=== PATIENT | female | born 1960 | race African-American/Black ===

== ENCOUNTER 2017-11-11 11:41 | Inpatient (IN) | payer OTHER ==
[2017-10-24 09:30] LABS: ABSOLUTE BASOPHILS 0.1 thou/uL (0.0-0.2); ABSOLUTE EOSINOPHILS 0.2 thou/uL (0.0-0.7); ABSOLUTE LYMPHOCYTES 2.1 thou/uL (0.8-5.3); ABSOLUTE MONOCYTES 0.3 thou/uL (0.0-1.2); ABSOLUTE NEUTROPHILS 1.8 thou/uL (1.6-8.1); BASOPHILS 1.2 %; HEMOGLOBIN 13.3 gm/dL (12.0-15.0); LYMPHOCYTES 47.4 %; MCH 29.6 pg (26.0-34.0); MCHC 33.2 g/dL (28.0-37.0); MONOCYTES 6.2 %; MPV 9.1 fl. (7.2-11.1); NUCLEATED RBCS 0 /100WBC; PLATELET COUNT* 247 thou/uL (150-400); POLYS 41.2 %; RBC 4.49 mil/uL (4.20-5.00); RDW-CV 13.1 % (10.5-14.5); WBC 4.5 thou/uL (4.0-11.0)
[2017-10-24 09:40] LABS: APTT 27.1 Seconds (25.0-31.3)
[2017-10-24 09:51] LABS: ALBUMIN 3.5 g/dL (3.4-5.0); CALCIUM 8.6 mg/dL (8.5-10.1); CREATININE 0.9 mg/dL (0.6-1.3); POTASSIUM 3.2 mmol/L (3.5-5.1); TOTAL BILIRUBIN 0.9 mg/dL (<0.1-1.0); TOTAL PROTEIN 6.8 g/dL (6.4-8.2)
[2017-10-24 10:25] LABS: ESR (SEDRATE) 5 mm/hr (0-30)
[2017-10-25 05:15] LABS: GLYCOHEMOGLOBIN (HGB A1C) 5.3 % (4.8-5.6)
[~2017-11-11] VITALS: Ht 160 cm; Wt 86.2 kg
[~2017-11-11 11:41] MED LIST: ETODOLAC 400 M400 M1 PO; KLOR-CON 1010 MEQ PO; LOPRESSOR25 PO; MAXZIDE-25 MG1 EACH PO; TRAMADOL 50 MG50 MG PO
[2017-11-11 12:36] VITALS: BP 173/76
[2017-11-11 16:27] VITALS: BP 132/86
[2017-11-11 20:00] VITALS: BP 118/72
[2017-11-11 23:55] VITALS: BP 111/65
[2017-11-12] VITALS (7 sets, daily range): BP systolic 119–144; BP diastolic 63–84
[2017-11-12 04:44] LABS: HEMATOCRIT 34.8 % (37.0-47.0); HEMOGLOBIN 11.6 gm/dL (12.0-15.0)
[2017-11-12 05:10] LABS: CALCIUM 8.6 mg/dL (8.5-10.1); CREATININE 1.1 mg/dL (0.6-1.3); POTASSIUM 3.9 mmol/L (3.5-5.1)
[2017-11-12 22:21] LABS: HEMATOCRIT 32.5 % (37.0-47.0); MCH 30.1 pg (26.0-34.0); MCHC 33.7 g/dL (28.0-37.0); MCV 89.4 fL (80.0-100.0); MPV 10.1 fl. (7.2-11.1); RBC 3.64 mil/uL (4.20-5.00); WBC 10.1 thou/uL (4.0-11.0)
[2017-11-12 22:29] LABS: APTT 27.2 Seconds (25.0-31.3); CALCIUM 8.1 mg/dL (8.5-10.1); CREATININE 1.1 mg/dL (0.6-1.3); INR 1.1; POTASSIUM 3.2 mmol/L (3.5-5.1); PROTIME 10.8 Seconds (9.20-11.50)
[2017-11-12 22:34] LABS: ALBUMIN 2.9 g/dL (3.4-5.0); TOTAL BILIRUBIN 0.7 mg/dL (<0.1-1.0); TOTAL PROTEIN 6.4 g/dL (6.4-8.2)
[2017-11-13] VITALS (8 sets, daily range): BP systolic 117–143; BP diastolic 67–84
[2017-11-13 04:18] LABS: HEMATOCRIT 32.3 % (37.0-47.0); HEMOGLOBIN 10.9 gm/dL (12.0-15.0)
[2017-11-13 07:05] LABS: URINE BILIRUBIN NEGATIVE (Negative); URINE BLOOD 1+ (Negative); URINE CLARITY CLEAR; URINE COLOR YELLOW; URINE GLUCOSE-RANDOM NEGATIVE (Negative); URINE KETONES NEGATIVE (Negative); URINE LEUKOCYTES-REFLEX NEGATIVE (Negative); URINE NITRITE-REFLEX NEGATIVE (Negative); URINE PROTEIN NEGATIVE (Negative); URINE SPECIFIC GRAVITY 1.025 (1.005-1.030); URINE UROBILINOGEN 0.2 E.U./dl (0.2-1.0)
[2017-11-13 07:19] LABS: BACTERIA-REFLEX 1-9 Few /HPF (None Seen); CASTS None Seen /LPF (None Seen); CRYSTALS None Seen /LPF (None Seen); MUCUS None Seen strn/LPF (None Seen); SQUAMOUS >10 Many /LPF (0-3); URINE RBC 3-10 Few /HPF (0-2); URINE WBC-REFLEX 0-5 Rare /HPF (0-5)
--- NOTE | 2017-11-13 10:08 | EKG ---
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
[2017-11-13 10:13] LABS: ABSOLUTE LYMPHOCYTES 1.7 thou/uL (0.8-5.3); ABSOLUTE MONOCYTES 0.9 thou/uL (0.0-1.2); ABSOLUTE NEUTROPHILS 5.5 thou/uL (1.6-8.1); BASOPHILS 0.2 %; LYMPHOCYTES 21.3 %; MCH 30.3 pg (26.0-34.0); MCHC 33.3 g/dL (28.0-37.0); MCV 90.8 fL (80.0-100.0); MONOCYTES 10.9 %; MPV 10.5 fl. (7.2-11.1); NUCLEATED RBCS 0 /100WBC; PLATELET COUNT* 169 thou/uL (150-400); POLYS 67.6 %; RBC 3.58 mil/uL (4.20-5.00); RDW-CV 13.2 % (10.5-14.5); WBC 8.1 thou/uL (4.0-11.0)
[2017-11-13 21:07] LABS: TROPONIN-I LEVEL <0.06 ng/mL (<0.06)
[2017-11-14] VITALS: BP 121/63
[2017-11-14 04:11] VITALS: BP 121/73
[2017-11-14 07:50] VITALS: BP 121/75
[2017-11-14 11:15] VITALS: BP 117/71
[2017-11-14 11:52] VITALS: BP 112/56
--- NOTE | 2017-11-14 14:56 | EKG ---
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
--- NOTE | 2017-11-14 14:56 | EKG ---
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: [facility] : 1960 Requested By: Sushil Simpson Order Number: [id number] Saad MD: Shukri Lindsay Measurements Intervals [place] Rate: 128 P: 0 GA: QRS: 0 QRSD: 79 T: QT: 332 QTc: 485 Interpretive Statements sinus tachycardia No further analysis attempted - not enough leads could be measured Missing lead(s): I,III,aVR,aVL,aVF,V1,V2,V3,V4,V5,V6 Compared to ECG 11/12/2017 21:54:22 Sinus tachycardia still noted Electronically Signed On 11-14-2017 14:55:42 CDT by Shukri Lindsay [email or web address] <ELECTRONICALLY SIGNED> By: Shukri Lindsay MD, FACC 11/14/17 1455 45 45 Shukri Lindsay MD, FAC /EPI
[2017-11-14 16:00] VITALS: BP 113/72
[2017-11-15] VITALS: BP 132/75
[2017-11-15 04:00] VITALS: BP 118/66
[2017-11-15 07:50] VITALS: BP 129/65
--- NOTE | 2017-11-15 11:27 | 2DMMODE ---
[place] [address] 2 D/M-MODE ECHOCARDIOGRAM Name: JODIE WINSTON Room: [address] IN [facility]#: [id number] Admission: 11/11/17 Attend Phys: Jesús Trevizo Discharge: Date of : 60 Date of Service: 11/15/17 1126 Report #: [id number] THIS REPORT FOR: //name// APPROVED REPORT Study performed: 11/15/2017 10:14:27 EXAM: Comprehensive 2D, Doppler, and color-flow Echocardiogram Patient Location: In-Patient Room #: [facility] Status: routine BSA: 1.89 HR: 111 bpm BP: 129/65 mmHg Rhythm: NSR Other Information Study Quality: Excellent Indications Dyspnea Tachycardia 2D Dimensions IVSd: 9.89 (7-11mm) LVOT Diam: 21.10 (18-24mm) LVDd: 49.57 mm PWd: 9.41 (7-11mm) Ascending Ao: 30.60 (22-36mm) LVDs: 32.74 (25-40mm) Aortic Root: 30.89 mm Volumes Left Atrial Volume (Systole) LA ESV Index: 35.60 mL/m2 Aortic Valve AoV Peak Jose M.: 1.61 m/s AO Peak Gr.: 10.33 mmHg LVOT Max P.84 mmHg AO Mean Gr.: 5.52 mmHg LVOT Mean P.39 mmHg LVOT Max V: 1.31 m/s AO V2 VTI: 25.38 cm LVOT Mean V: 0.85 m/s ASH (VTI): 2.98 cm2 LVOT V1 VTI: 21.60 cm Mitral Valve E/A Ratio: 0.59 MV Decel. Time: 128.51 [place] [address] 2 D/M-MODE ECHOCARDIOGRAM Name: JODIE WINSTON Room: [address]#: [id number] Admission: 11/11/17 Attend Phys: Jesús Trevizo Discharge: Date of : 60 Date of Service: 11/15/17 1126 Report #: [id number] MV E Max Jose M.: 0.68 m/s MV PHT: 37.27 ms MVA (PHT): 5.90 cm2 TDI E/Lateral E': 6.18 E/Medial E': 5.23 Medial E' Jose M.: 0.13 m/s Lateral E' Jose M.: 0.11 m/s Pulmonary Valve PV Peak Jose M.: 1.19 m/s PV Peak Gr.: 5.65 mmHg Tricuspid Valve RAP Estimate: 5.00 mmHg TR Peak Gr.: 29.71 mmHg RVSP: 34.71 mmHg PA Pressure: 34.71 mmHg Left Ventricle The left ventricle is normal size. There is normal LV segmental wall motion. There is normal left ventricular wall thickness. Left ventricular systolic function is normal. The left ventricular ejection fraction is within the normal range. LVEF is 60-65%. Grade I - abnormal relaxation pattern. Right Ventricle The right ventricle is normal size. The right ventricular systolic function is normal. Atria Left atrium is mildly dilated. The right atrium size is normal. Aortic Valve The aortic valve is normal in structure. No aortic regurgitation is present. There is no aortic valvular stenosis. Mitral Valve The mitral valve is normal in structure. Trace mitral regurgitation. No evidence of mitral valve stenosis. Tricuspid Valve The tricuspid valve is normal in structure. Mild tricuspid regurgitation. estimated pa pressure 40 mm Hg Pulmonic Valve The pulmonary valve is normal in structure[place] [address] 2 D/M-MODE ECHOCARDIOGRAM Name: JODIE WINSTON Room: [address]#: [id number] Admission: 11/11/17 Attend Phys: Jesús Trevizo Discharge: Date of : 60 Date of Service: 11/15/17 1126 Report #: [id number] regurgitation. Great Vessels The aortic root is normal in size. IVC is normal in size and collapses with >50% inspiration Pericardium There is no pericardial effusion. <Conclusion> LVEF is 60-65%. Left atrium is mildly dilated. Mild tricuspid regurgitation. estimated pa pressure 40 mm Hg <ELECTRONICALLY SIGNED> By: Shukri Lindsay MD, FACC 11/15/17 1126 1126 1126 Shukri Lindsay MD, FACC /INF
[2017-11-15 12:10] VITALS: BP 129/73
[2017-11-15 16:00] VITALS: BP 123/73
[2017-11-15 20:20] VITALS: BP 121/70
[2017-11-16 01:32] VITALS: BP 99/66
[2017-11-16 02:41] VITALS: BP 116/72
[2017-11-16 08:00] VITALS: BP 127/65
[2017-11-16 10:55] VITALS: BP 127/65
[2017-11-16] MEDS ORDERED: ELIQUIS2.5 MG PO (12:50)
[2017-11-16] MEDS ORDERED: NEURONTIN 300300 M1 PO (12:54)
[2017-11-16] MEDS ORDERED: OXYCODONE HCL 55 MG PO (12:56)
--- NOTE | 2017-11-20 08:11 | OP ---
[address] [address] OPERATIVE REPORT Name: JODIE WINSTON Room: [address]#: [id number] Admission: 11/11/17 Attend Phys: Itzel Cedillo Discharge: 11/16/17 Date of : 60 Report #: [id number] THIS REPORT FOR: //name// CC: Rosette Trevizo DICTATED BY: Steve Alas DO DATE OF SERVICE: 11/11/2017 DIAGNOSIS: Left knee degenerative joint disease. SURGEON: Andres Last DO TIME STUDY STATISTICIAN: Steve Alas DO OPERATION PERFORMED: Left total knee arthroplasty. ANESTHESIA: General regional nerve block and local anesthetic. ESTIMATED BLOOD LOSS: 100 mL. SPECIMENS: None. COMPLICATIONS: None. DRAINS: None. ORTHOPEDIC IMPLANTS: 1. Biomet Vanguard CR femur, 62.5 mm. 2. Biomet Vanguard tibial baseplate, 67 mm. 3. Biomet Vanguard asymmetric poly patella, 31 mm. 4. Biomet Vanguard tibial bearing, 10 mm. INDICATIONS FOR PROCEDURE: The patient is a 57-year-old female who has had ongoing left knee pain, joint line tenderness medially, crepitance with range of motion. She has failed conservative measures in the form of activity modifications, attempted weight loss, home exercises, NSAIDs and steroid injections, has decreased quality of life and inability to carry out activities of daily living secondary to pain. It is recommend she would a candidate for left total knee arthroplasty given the advancing arthritis medial joint space, subchondral sclerosis and osteophyte formation present. All risks, benefits, complications, indications, alternatives were reviewed for this and she wished to proceed. [place] [id number] OPERATIVE REPORT Name: JODIE WINSTON Room: [address]#: [id number] Admission: 11/11/17 Attend Phys: Itzel Cedillo Discharge: 11/16/17 Date of : 60 Report #: [id number] DESCRIPTION OF PROCEDURE: The patient was brought to the operative suite and placed supine on a well-padded table, given the benefits of general anesthesia. At that time, the left lower extremity was sterilely prepped and draped in standard fashion. Timeout was taken to ensure correct patient, procedure, operative site and everybody in the room was in agreeance. At that time, a 10 blade scalpel was used to make a skin incision around the anterior aspect of the left knee. Dissection was carried down through skin and subcutaneous tissue. A second 10 blade was then used to perform a medial parapatellar arthrotomy. Subperiosteal tibial sleeve was developed. Excess Hoffa's fat pad and anterior horns of the medial and lateral menisci were excised as well as the ACL. We then used a drill. Patella was everted. The knee was brought into deep flexion. Drill was used to find intramedullary canal of the femur. Distal intramedullary femoral cutting guide was set to 11 mm resection and pinned into place with 5 degrees valgus, left. We made this resection. Following that, we used extramedullary tibial guide set in line with the medial third of the tibial tubercle, tibial crest and middle of the ankle. A stylus was used to make a 10 mm resection of the high lateral side. Once this resection was made with adequate spacing of the 10 block spacer, we then sized our femur to a 62.5. We made our anterior cuts followed by posterior cuts, anterior and posterior chamfer cuts. We removed excess osteophytes. Bovie electrocautery was used to remove the remnants of the meniscus as well as the rest of the PCL. We then sized our tibia to a size 67, pinned this into place with a drop melina in the appropriate position. A trial of 62.5 femur with a 10 mm poly had excellent stability through range of motion, full range of motion 0-135 degrees with excellent mid flexion stability. Final pedicles were drilled. The proximal tibia was prepared with the drill and punch. The patella was denervated with Bovie electrocautery and using a 46 mm Alexis reamer, was resurfaced to 14 mm of thickness. Three peg holes were drilled with a 31 asymmetric poly drill guide. We then trialed our trial patella, had excellent stability through range of motion without any lateral patellar tracking. All parts were removed. The ends of the bone were treated with pulsatile lavage. Cement was mixed at the back table. We then carried out cementing first with the tibia, followed by the femur and patella. Once cement was allowed to harden with a 10 mm spacer in, we then pulled our final 10 mm anterior stabilized insert. This was placed with a locking crossbar. Following that, the knee was thoroughly lavaged. A gram of vancomycin powder was allowed to sit in the knee. We then closed with #1 Vicryl, followed by running #1 Stratafix, irrigated once more, closed subcutaneous tissue with 2-0 Monocryl, followed by running 3-0 Stratafix. Dermabond glue with Mepilex dressing and JARVIS hose applied. The patient awoke from anesthesia, brought to PACU in stable condition. <ELECTRONICALLY SIGNED> By: Jad Qureshi DO 11/20/17 0811 1509 1657DO abhijeet Zamudio
--- NOTE | 2017-11-22 09:32 | CON ---
[address] [address] CONSULTATION Name: JODIE WINSTON Room: [address]#: [id number] Admission: 11/11/17 Attend Phys: Itzel Cedillo Discharge: 11/16/17 Date of : 60 Report #: [id number] THIS REPORT FOR: //name// CC: Andres Trevizo DATE OF SERVICE: 11/13/2017 HISTORY OF PRESENT ILLNESS: This is a 57-year-old female patient who had a left knee replacement on Saturday. She was doing well. She indicated she was on the first floor. She noticed that her hand became stiff. It is not clear what her blood pressure was, looks like the pulse was somewhat higher. She underwent a CT scan of the head, which was unremarkable. She is on pain medication. She never had this kind of spell before. REVIEW OF SYSTEMS: Indicate she had a knee replacement. She is on anticoagulation. Her CT scan is unremarkable. She is still complaining of lot of pain. She says that even if she touches her left knee, it hurts a lot. She did have some hypokalemia. REVIEW OF SYSTEMS: A 14-point review of systems was otherwise noncontributory. PAST MEDICAL HISTORY: Negative for similar kind of spell. FAMILY HISTORY: Negative for early age stroke. PHYSICAL EXAMINATION: Indicate she is alert, she is responsive, she is oriented. She can follow simple commands. Her speech, concentration, fund of knowledge and memory is unremarkable. Cranial nerve examination 2-12 looks unremarkable. Neuromuscular examination as far as it can be carried out looks mostly unremarkable. It is difficult to carry out with the knee surgery. There is no cerebellar sign. There is no carotid bruit. Cardiac examination is unremarkable. Respiratory examinations appear unremarkable. Blood pressure is 129/78, respirations 18, pulse is 111, temperature is 100.3. She did have a CT scan of the head, which was unremarkable. IMPRESSION: It is unlikely that the episode was neurological. Even if it is neurological, I do not think any active management is needed in that regard. Our MRI is down and we cannot do the MRI in this patient and we will get it done when it is fixed. In the meantime, I will suggest working her up for any systemic cause for her problems, which I will defer to yourself. Neurologically, I will get a carotid Doppler done. I will wait until the MRI is fixed. I did discuss that aspect with the family and their options in that regard. She is back to her baseline and I think neurologically[place] [address] CONSULTATION Name: JODIE WINSTON Room: [address] IN M.R.#: [id number] Admission: 11/11/17 Attend Phys: Itzel Cedillo Discharge: 11/16/17 Date of : 60 Report #: [id number] watch her. Thank you very much for this referral. All of it was discussed with the patient and the family in detail. <ELECTRONICALLY SIGNED> By: Aly Young MD 11/22/17 0932 1312 2044Proseanna Young MD /nt
--- NOTE | 2017-11-22 09:32 | EEG ---
[address] [address] EEG STUDY REPORT Name: JODIE WINSTON Room: [address]#: [id number] Admission: 11/11/17 Attend Phys: Itzel Cedillo Discharge: 11/16/17 Date of : 60 Report #: [id number] THIS REPORT FOR: //name// CC: Andres Trevizo This patient was having somewhat of an unusual spell. EEG is done to evaluate the possibility of seizure. EEG was done by placing the electrodes by standard 10-20 system of electrode placement. Both referential and sequential montages were used for recording. Background activity in this patient's EEG goes up to about 9 Hz and 40 microvolt. Large portion of this EEG was obtained when the patient was asleep and that is associated with bilaterally symmetrical sleep spindle, vertex sharp waves and K complexes. Photic stimulation is unremarkable. Throughout the record, no active epileptiform activity was noticed. IMPRESSION: This patient's EEG did not reveal any clear-cut epileptiform activity and was unremarkable. Thank you very much for this referral. <ELECTRONICALLY SIGNED> By: Aly Young MD 11/22/17 0932 1044 1108Parclive Young MD /nt
--- NOTE | 2017-11-22 09:32 | EEG ---
[address] [address] EEG STUDY REPORT Name: JODIE WINSTON Ariella Room: [address] IN .R#: [id number] Admission: 11/11/17 Attend Phys: Itzel Cedillo Discharge: 11/16/17 Date of : 60 Report #: [id number] THIS REPORT FOR: //name// CC: Andres Trevizo DATE OF SERVICE: 11/14/2017 This patient is being evaluated for episode of paresthesias she is having. EEG was done by placing the electrode by standard 10-20 system of electrode placement. Both referential and sequential montages were used for recording. Background activity in this patient's EEG is about 9-10 Hz and 30 microvolt. It is a symmetrical activity. The patient went to sleep that is associated with bilateral slowing, vertex sharp waves as well as sleep spindles. Photic stimulation is unremarkable. Throughout the record, no active epileptiform activity was noticed. IMPRESSION: This patient's EEG is unremarkable. It did not reveal any definite epileptiform activity. <ELECTRONICALLY SIGNED> By: Aly Young MD 11/22/17 0932 1502 1518Aly Young MD /nt
== END 2017-11-16 13:55 | disposition home or self-care (01) | DRG 470 ==
LOC: M.SUR 11:41 → M.TBA 11:41 → M.SUR 15:04 → M.TBA 15:04 → EDSTATUS 15:48 → M.SUR 15:51 → M.PRE 16:11 → M.ORTHSURG 16:47 → M.TBA 16:47 → M.ORTHSURG 17:10 → M.ICU 11-12 22:44 → M.3W 11-13 10:56
PROVIDERS: Emergency Medicine; Internal Medicine; Orthopaedic Surgery; ADMIT Internal Medicine
PROC: 0SRD0J9 Replacement of Left Knee Joint with Synthetic Substitute, Cemented, Open Approach (ICD-10-PCS; principal; 2017-11-11)
DX: M17.12 Unilateral primary osteoarthritis, left knee (principal); I10 Essential (primary) hypertension; E87.6 Hypokalemia; R00.0 Tachycardia, unspecified; Z98.891 History of uterine scar from previous surgery; Z79.899 Other long term (current) drug therapy

== ENCOUNTER 2017-12-25 09:05 | Emergency (ER) | payer OTHER ==
[~2017-12-25] VITALS: Ht 160 cm; Wt 79.4 kg
[~2017-12-25 09:05] MED LIST changes: +ELIQUIS2.5 MG PO; +NEURONTIN 300300 M1 PO; +OXYCODONE HCL 55 MG PO
[2017-12-25] MEDS ORDERED: ASPIRIN81 M2 PO (09:13)
[2017-12-25 09:29] LABS: HEMOGLOBIN 12.7 gm/dL (12.0-15.0); MCHC 32.5 g/dL (28.0-37.0); MCV 89.2 fL (80.0-100.0); MPV 10.1 fl. (7.2-11.1); NUCLEATED RBCS 0 /100WBC; PLATELET COUNT* 306 thou/uL (150-400); PROTIME 10.3 Seconds (9.20-11.50); RBC 4.37 mil/uL (4.20-5.00); RDW-CV 14.2 % (10.5-14.5); WBC 5.8 thou/uL (4.0-11.0)
[2017-12-25 09:56] LABS: ANION GAP 9 mmol/L (7-16); BUN 11 mg/dL (7-18); CALCIUM 9.7 mg/dL (8.5-10.1); CHLORIDE 101 mmol/L (98-107); CO2 29 mmol/L (21-32); CREATININE 1.2 mg/dL (0.6-1.3); GLUCOSE 128 mg/dL (70-99); POTASSIUM 3.1 mmol/L (3.5-5.1); SODIUM 139 mmol/L (136-145)
[2017-12-25 10:03] LABS: ALBUMIN 3.5 g/dL (3.4-5.0); ALKALINE PHOSPHATASE 98 U/L (46-116); SGOT 14 U/L (15-37); SGPT 15 U/L (30-65); TOTAL BILIRUBIN 0.7 mg/dL (<0.1-1.0); TROPONIN-I LEVEL <0.06 ng/mL (<0.06)
[2017-12-25 10:38] VITALS: BP 144/72
--- NOTE | 2017-12-25 11:09 | EKG ---
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: : 1960 Requested By: Atruro Goodrich Order Number: [id number] MD: Shukri Lindsay Measurements Intervals [place] Rate: 74 P: 40 NV: 146 QRS: -7 QRSD: 103 T: 6 QT: 397 QTc: 441 Interpretive Statements Sinus rhythm RSR' in V1 or V2, right VCD or RVH Compared to ECG 11/13/2017 19:57:45 Sinus tachycardia no longer present Right-axis deviation no longer present T-wave abnormality no longer present Electronically Signed On 12-25-2017 11:09:04 CDT by Shukri Lindsay [email or web address] <ELECTRONICALLY SIGNED> By: Shukri Lindsay MD, FACC 12/25/17 1109 Shukri Lindsay MD, [facility] /EPI
[2017-12-25 11:21] LABS: ABSOLUTE EOSINOPHILS 0.1 thou/uL (0.0-0.7); ABSOLUTE LYMPHOCYTES 2.3 thou/uL (0.8-5.3); ABSOLUTE MONOCYTES 0.2 thou/uL (0.0-1.2); ABSOLUTE NEUTROPHILS 3.2 thou/uL (1.6-8.1); ATYPICAL LYMPHS 2 %
[2017-12-25 11:22] LABS: LARGE PLATELETS FEW; PLATELET ESTIMATE DECREASED
== END 2017-12-25 10:40 | disposition home or self-care (01) ==
LOC: M.ERS 09:05
PROVIDERS: Family Medicine
DX: F41.0 Panic disorder [episodic paroxysmal anxiety] (principal); M19.90 Unspecified osteoarthritis, unspecified site; Z98.890 Other specified postprocedural states